=== PATIENT | male | born 1950 | race Caucasian/White ===

== ENCOUNTER 2016-03-03 11:33 | Emergency (ER) | payer BC, MEDICARE ==
[~2016-03-03] VITALS: Wt 90.0 kg
--- NOTE | 2016-03-03 13:34 | RADRPT ---
PROCEDURE: Scrotal ultrasound CLINICAL INDICATION: Left scrotal pain and swelling. TECHNIQUE: Scrotal ultrasound was performed with sagittal and transverse views. Chan scale and co eugenia imaging was performed. Images were reviewed on high resolution PACS monitors. COMPARISON: None. FINDINGS: The right and left testicles are normal in size and echogenicity with normal Doppler flow. The righ t testicle measures 5.5 x 2.0 x 2.4 cm (13.5 cc). The left testicle measures 4.3 x 2.0 x 2.9 cm (12 .7 cc). The right epididymis is unremarkable. There is marked enlargement, heterogeneity and hyper vascularity of the left epididymis compatible with acute epididymitis. There is no evidence of orga nized fluid collection. Mild scrotal wall edema is observed. IMPRESSION: Acute left epididymitis. RPTAT: HLST .Georgina Balderrama MD, Date Time Electronically viewed and signed by .Georgina Balderrama MD, on 03/03/2016 13:34 .T/
[2016-03-03 14:15] LABS: ADD UMIC YES; URINE BILIRUBIN (Dip) 1+ (NEGATIVE); URINE BLOOD (Dip) 3+ (NEGATIVE); URINE COLOR YELLOW (YELLOW); URINE GLUCOSE (Dip) NEGATIVE (NEGATIVE); URINE KETONES (Dip) NEGATIVE (NEGATIVE); URINE LEUKOCYTE ESTERASE (Dip) 1+ (NEGATIVE); URINE NITRITE (Dip) NEGATIVE (NEGATIVE); URINE TOTAL PROTEIN (Dip) 2+ (NEGATIVE); URINE UROBILINOGEN (Dip) 1.0 E.U./dL (0.1-1.0)
[2016-03-03 14:28] LABS: BACTERIA,URINE MODERATE; ICTOTEST NEGATIVE (NEGATIVE); URINE RBCS >50 /HPF (0)
[2016-03-03] MEDS ORDERED: CIPR500T4 PO (15:13)
--- NOTE | 2016-03-03 17:56 | ERD ---
ER Documentation Chief Complaint Date/Time DATE: 03/03/16 TIME: 17:52 Chief Complaint URINE PROBLEM X1 YEAR, PAIN WITH URINATION, DISCHARGE HPI 65-year-old male with status post cholecystectomy presents the ED complaining of frequency, urgency and burning with urination intermittently for the last year. States that last that he started to get chills and his left testicle was swollen and painful. Denies any flank pain, abdominal pain, nausea, vomiting, chest pain, shortness of breath. He is currently sexually active and has one partner. ROS All systems reviewed and are negative except as per history of present illness. Medications Home Meds Active Scripts Ciprofloxacin Hcl* (Ciprofloxacin Hcl*) 500 Mg Tablet, 500 MG PO BID for 10 Days , TAB Prov:SAFIA MOORE PA-C 03/03/16 Allergies Allergies: Coded Allergies: No Known Drug Allergies (Verified Allergy, 02/17/13) PMhx/Soc History of Surgery: Yes (HEMORRHOIDECTOMY) Anesthesia Reaction: No Hx Neurological Disorder: No Hx Respiratory Disorders: No Hx Cardiac Disorders: No Hx Psychiatric Problems: No Hx Miscellaneous Medical Probl: No Hx Alcohol Use: Yes (OCCASIONAL) Hx Substance Use: No Hx Tobacco Use: No Smoking Status: Never smoker Physical Exam Vitals Vital Signs Date Time Temp Pulse Resp B/P Pulse Ox O2 Delivery O2 Flow Rate FiO2 03/03/16 11:39 98.1 77 18 173/94 98 Physical Exam Const: [id number], well-nourished. In no acute distress. Head: Atraumatic, normocephalic Eyes: Normal Conjunctiva without injection. No purulent discharge. ENT: Normal external ear, nose. Moist oropharynx without tonsillar exudates. Non -erythematous pharynx. Uvula midline. No drooling. No trismus. Neck: No cervical midline tenderness. Full range of motion. No meningismus. No cervical lymphadenopathy. No JVD. Resp: Clear to auscultation bilaterally. No wheezing, rhonchi, rales, or crackles. No accessory muscle use. No retractions. Cardio: Regular rate and rhythm. No murmurs, rubs or gallops. Abd: Soft, nontender, non distended. Normal bowel sounds. No palpable masses. No rebound tenderness. No guarding. Negative McBurney's point. Negative psoas sign. Negative obturator sign. : Tenderness to palpation of the left testicle, slightly edematous, no erythema noted. No purulent discharge noted. No phimosis. No paraphimosis. Skin: No petechiae or rashes Back: No midline tenderness. No CVA tenderness. Ext: No cyanosis, or edema. Neur: Awake and alert. Normal gait. Normal coordination. Psych: Normal Mood and Affect Results 24 hrs Laboratory Tests Test 03/03/16 13:20 Urine Bacteria MODERATE Urine Bilirubin 1+ Urine Clarity CLOUDY Urine Color YELLOW Urine Epithelial Cells FEW Urine Glucose NEGATIVE% Urine Hemoglobin 3+ Urine Ictotest NEGATIVE Urine Ketones NEGATIVE Urine Leukocyte Esterase 1+ Urine Microscopic RBC >50/HPF Urine Microscopic WBC >200/HPF Urine Nitrite NEGATIVE Urine Specific Adkins 1.025 Urine Total Protein 2+ Urine Urobilinogen 1.0 E.U./dL Urine pH 6.0 Procedures/MDM This is a 65-year-old male with a past medical history of status post cholecystectomy presents the ED playing of frequency, urgency, burning with urination. Patient is afebrile and nontoxic-appearing. Patient's blood pressures noticed he 173/94. Patient's blood pressure was elevated (>120/80) but appears stable without evidence of hypertension emergency or urgency. The patient was counseled about the risks of hypertension and urged to pursue outpatient monitoring and therapy within a week with their primary care physician. Low suspicion for an organ damage. PROCEDURE: Scrotal ultrasound CLINICAL INDICATION: Left scrotal pain and swelling. TECHNIQUE: Scrotal ultrasound was performed with sagittal and transverse views. Chan scale and color imaging was performed. Images were reviewed on high resolution PACS monitors. COMPARISON: None. FINDINGS: The right and left testicles are normal in size and echogenicity with normal Doppler flow. The right testicle measures 5.5 x 2.0 x 2.4 cm (13.5 cc). The left testicle measures 4.3 x 2.0 x 2.9 cm (12.7 cc). The right epididymis is unremarkable. There is marked enlargement, heterogeneity and hypervascularity of the left epididymis compatible with acute epididymitis. There is no evidence of organized fluid collection. Mild scrotal wall edema is observed. IMPRESSION: Acute left epididymitis. Urinalysis showed 1+ leukocyte esterase with greater than 200 white blood cells noted in the urinalysis. A gonorrhea and chlamydia urine tests be sent out and will be followed up in 2 days. He was treated with ciprofloxacin outpatient for 10 days. This case was discussed with my supervising physician, Dr. Jake villagomez who agreed with the management and discharge plan. Patient's pain could likely be due to acute left epididymitis. There is low suspicion for testicular torsion, acute appendicitis, diverticulitis, septic renal stone, bowel instruction, or other emergent conditions. Discharge medications: Ciprofloxacin Follow up with primary care physician in 1-2 days for a referral to urology. Instructed patient to return to the ED sooner for any worsening symptoms. Patient's questions were answered. Patient understood and agreed with discharge plan. Patient discharged stable. Departure Diagnosis: Primary Impression: Epididymitis, left Additional Impression: Urinary tract infection Urinary tract infection type: site unspecified Hematuria presence: without hematuria Qualified Code: N39.0 - Urinary tract infection without hematuria, site unspecified Condition: Stable Patient Instructions: Urinary Tract Infections in Men, Epididymitis Referrals: SAI SAINI MD, EUGENE MD [facility] YOU HAVE RECEIVED A MEDICAL SCREENING EXAM AND THE RESULTS INDICATE THAT YOU DO NOT HAVE A CONDITION THAT REQUIRES URGENT TREATMENT IN THE EMERGENCY DEPARTMENT. FURTHER EVALUATION AND TREATMENT OF YOUR CONDITION CAN WAIT UNTIL YOU ARE SEEN IN YOUR DOCTORS OFFICE WITHIN THE NEXT 1-2 DAYS. IT IS YOUR RESPONSIBILITY TO MAKE AN APPOINTMENT FOR FOLOW-UP CARE. IF YOU HAVE A PRIMARY DOCTOR --you should call your primary doctor and schedule an appointment IF YOU DO NOT HAVE A PRIMARY DOCTOR YOU CAN CALL OUR PHYSICIAN REFERRAL HOTLINE AT IF YOU CAN NOT AFFORD TO SEE A PHYSICIAN YOU CAN CHOSE FROM THE FOLLOWING [facility] [address] [address] [facility] [address] [facility] [facility] [address] [facility] [address] [facility] [address] [facility] [facility]. [address] [facility] YOU HAVE RECEIVED A MEDICAL SCREENING EXAM AND THE RESULTS INDICATE THAT YOU DO NOT HAVE A CONDITION THAT REQUIRES URGENT TREATMENT IN THE EMERGENCY DEPARTMENT. FURTHER EVALUATION AND TREATMENT OF YOUR CONDITION CAN WAIT UNTIL YOU ARE SEEN IN YOUR DOCTORS OFFICE WITHIN THE NEXT 1-2 DAYS. IT IS YOUR RESPONSIBILITY TO MAKE AN APPOINTMENT FOR FOLOW-UP CARE. IF YOU HAVE A PRIMARY DOCTOR --you should call your primary doctor and schedule and appointment IF YOU DO NOT HAVE A PRIMARY DOCTOR YOU CAN CALL OUR PHYSICIAN REFERRAL HOTLINE AT . IF YOU CAN NOT AFFORD TO SEE A PHYSICIAN YOU CAN CHOSE FROM THE FOLLOWING [facility] INSTITUTIONS: [facility] [address] [place] [address] [facility] [address] [place] [address] [facility] [address] [place] [address] [facility] URGENT CARE/SPECIALTIES Additional Instructions: FOLLOW UP WITH YOUR PRIMARY CARE PHYSICIAN TOMORROW.Return to this facility if you are not improving as expected. SAFIA MOORE PA-C Mar 03, 2016 17:56
== END 2016-03-03 15:32 | disposition home or self-care (01) ==
LOC: FTE 11:33
DX: N45.1 Epididymitis (principal); N39.0 Urinary tract infection, site not specified
CPT/HCPCS: 76870; 81001; 81003; 87591

== ENCOUNTER 2017-03-06 09:02 | Emergency (ER) | END 2017-03-06 12:08 | disposition home or self-care (01) ==

== ENCOUNTER 2017-07-20 01:00 | Emergency (ER) | END 2017-07-20 02:00 | disposition left against medical advice (07) ==